=== PATIENT | female | born 1935 | race Caucasian/White ===

== ENCOUNTER 2019-04-03 19:08 | Inpatient (IN) ==
[2019-04-03] MEDS ORDERED: Albuterol 2.5 MG/3 ML NEBULIZER ONE (19:14)
[2019-04-03] MEDS ORDERED: Ipratropium/Albuterol Neb 3 ML ONE (19:14)
[2019-04-03] MEDS ORDERED: Ipratropium/Albuterol Neb 3 ML IH ONE ×2 (19:32→19:35)
[2019-04-03] MEDS ORDERED: Albuterol 2.5 MG/3 ML NEBULIZER IH ONE (19:37)
[2019-04-03 20:05] LABS: Basophils % 0.3 %; Eosinophils % 0.1 %; Hematocrit 31.7 % (35.3-44.9); Hemoglobin 9.9 g/dL (11.5-15.4); Immature Granulocytes % 0.5 % (0-4); Lymphocytes # 0.3 K/mcL (0.6-4.6); Lymphocytes % 2.2 %; Mean Corpuscular HGB Conc 31.2 g/dL (31.6-35.5); Mean Corpuscular Hemoglobin 29.4 pg (28.0-33.3); Mean Corpuscular Volume 94.1 fL (83.0-100.0); Mean Platelet Volume 9.8 fL (9.4-12.4); Monocytes # 0.6 K/mcL (0.0-1.3); Monocytes % 4.8 %; Neutrophils # 11.4 K/mcL (1.6-8.9); Platelet Count 204 K/mcL (140-400); Red Blood Count 3.37 M/mcL (3.82-4.97); Red Cell Distribution Width 16.4 % (11.5-14.5); Segmented Neutrophils % 92.1 %; White Blood Count 12.4 K/mcL (4.3-11.1)
[2019-04-03 20:15] LABS: VBG HCO3 34 mEq/L (21-27); VBG PCO2 60 mmHg (41-51); VBG PH 7.37 pH Units (7.32-7.42); VBG PO2 33 mmHg (25-50)
[2019-04-03 20:24] LABS: Alanine Aminotransferase 15 Units/L (7-52); Albumin 3.7 g/dL (3.5-5.7); Albumin/Globulin Ratio 1.4 (1.1-2.2); Alkaline Phosphatase 186 Units/L (34-104); Aspartate Amino Transferase 23 Units/L (13-39); BUN/Creatinine Ratio 13 (6-26); Bilirubin,Total 0.9 mg/dL (0.3-1.0); Blood Urea Nitrogen 10 mg/dL (8-23); Calcium 9.1 mg/dL (8.6-10.3); Carbon Dioxide 36 mEq/L (23-29); Chloride 97 mEq/L (98-107); Globulin 2.7 g/dL (2.4-3.5); Glucose 117 mg/dL (70-105); Osmolality,Calculated 284 (280-300); Sodium 137 mEq/L (136-145); Total Protein 6.4 g/dL (6.4-8.9); eGFR For African Americans > 60 (> 60); eGFR For Non-African Americans > 60 (> 60)
[2019-04-03] MEDS ORDERED: MOM Conc 10 ML UD.LIQ PO PRN (21:22)
[2019-04-03] MEDS ORDERED: Ondansetron ODT 4 MG TAB.RAPDIS SL PRN (21:22)
[2019-04-03] MEDS ORDERED: Acetaminophen 325 MG TABLET PO PRN (21:22)
[2019-04-03] MEDS ORDERED: Naloxone 0.4 MG/ML INJ IVP PRN (21:22)
[2019-04-03] MEDS ORDERED: MethylPREDNISolone 40 MG/ML VIAL IVP ONE (21:23)
[2019-04-03] MEDS ORDERED: Ondansetron 4 MG/2 ML VIAL IVP ONE (21:27)
[2019-04-03 21:34] LABS: INR 1.2; Prothrombin Time 13.4 Seconds (9.4-12.1)
[2019-04-03 21:37] LABS: Activated Partial Thrombo Time 36.3 Seconds (26.0-36.0)
[2019-04-03] MEDS ORDERED: cefTRIAXone 1,000 MG in 0.9 % Sodium Chloride Mini Bag 100 ML IVPB ONE (23:16)
[2019-04-03] MEDS: MethylPREDNISolone 40 MG/ML VIAL IVP SCH (23:24)
[2019-04-04] MEDS: Azithromycin 500 MG in 0.9 % Sodium Chloride 250 ML IVPB SCH ×2 (00:26→22:51)
[2019-04-04] MEDS: MethylPREDNISolone 40 MG/ML VIAL IVP SCH ×4 (04:35→22:51)
[2019-04-04] MEDS: Ipratropium/Albuterol Neb 3 ML IH PRN ×2 (04:35→09:34)
[2019-04-04] MEDS: *HR* Enoxaparin 40 MG/0.4 ML SYRINGE SQ SCH (06:11)
[2019-04-04] MEDS ORDERED: Cefdinir 300 MG CAPSULE PO SCH (09:00)
[2019-04-04] MEDS: PARoxetine 20 MG TABLET PO SCH (09:15)
[2019-04-04] MEDS: Ipratropium/Albuterol Neb 3 ML IH SCH ×3 (13:02→20:57)
[2019-04-04] MEDS ORDERED: Acetaminophen 325 MG TABLET PO ONE (21:27)
[2019-04-05] MEDS: Ipratropium/Albuterol Neb 3 ML IH SCH ×7 (04:15→23:37)
[2019-04-05] MEDS: MethylPREDNISolone 40 MG/ML VIAL IVP SCH ×3 (04:15→20:05)
[2019-04-05] MEDS: *HR* Enoxaparin 40 MG/0.4 ML SYRINGE SQ SCH (04:15)
[2019-04-05 06:47] LABS: Basophils % 0.1 %; Hemoglobin 8.6 g/dL (11.5-15.4); Immature Granulocytes % 0.6 % (0-4); Lymphocytes # 0.2 K/mcL (0.6-4.6); Lymphocytes % 2.6 %; Mean Corpuscular HGB Conc 31.9 g/dL (31.6-35.5); Mean Corpuscular Hemoglobin 29.6 pg (28.0-33.3); Mean Corpuscular Volume 92.8 fL (83.0-100.0); Mean Platelet Volume 10.1 fL (9.4-12.4); Monocytes # 0.3 K/mcL (0.0-1.3); Monocytes % 3.2 %; Platelet Count 192 K/mcL (140-400); Red Blood Count 2.91 M/mcL (3.82-4.97); Red Cell Distribution Width 16.2 % (11.5-14.5); Segmented Neutrophils % 93.5 %; White Blood Count 8.6 K/mcL (4.3-11.1)
[2019-04-05 07:04] LABS: BUN/Creatinine Ratio 24 (6-26); Blood Urea Nitrogen 20 mg/dL (8-23); Calcium 8.6 mg/dL (8.6-10.3); Carbon Dioxide 34 mEq/L (23-29); Chloride 97 mEq/L (98-107); Glucose 138 mg/dL (70-105); Osmolality,Calculated 281 (280-300); Potassium 4.3 mEq/L (3.5-5.1); Sodium 133 mEq/L (136-145); eGFR For African Americans > 60 (> 60); eGFR For Non-African Americans > 60 (> 60)
[2019-04-05] MEDS: PARoxetine 20 MG TABLET PO SCH (09:46)
[2019-04-05] MEDS: cefTRIAXone 1,000 MG in Water for inj. (sterile) 10 ML IVP SCH (12:34)
[2019-04-05] MEDS: Azithromycin 500 MG in 0.9 % Sodium Chloride 250 ML IVPB SCH (23:38)
[2019-04-06] MEDS ORDERED: *HR* Promethazine 25 MG/ML VIAL IVP ONE (00:48)
[2019-04-06] MEDS: Ipratropium/Albuterol Neb 3 ML IH SCH ×5 (03:33→21:45)
[2019-04-06 04:19] LABS: ABG Base Excess 7 mEq/L (-2 to 3); ABG HCO3 37 mEq/L (21-27); ABG Oxygen Saturation 97 % (95-98); ABG PCO2 87 mmHg (35-45); ABG PH 7.23 pH Units (7.32-7.45); ABG PO2 108 mmHg (85-104); ABG TCO2 39 mEq/L (20-26)
[2019-04-06] MEDS: MethylPREDNISolone 40 MG/ML VIAL IVP SCH ×4 (05:57→21:46)
[2019-04-06] MEDS: *HR* Enoxaparin 40 MG/0.4 ML SYRINGE SQ SCH (05:57)
[2019-04-06] MEDS: PARoxetine 20 MG TABLET PO SCH (09:38)
[2019-04-06] MEDS: cefTRIAXone 1,000 MG in Water for inj. (sterile) 10 ML IVP SCH (09:43)
[2019-04-06 10:26] LABS: VBG HCO3 34 mEq/L (21-27); VBG PCO2 64 mmHg (41-51); VBG PH 7.34 pH Units (7.32-7.42); VBG PO2 67 mmHg (25-50)
[2019-04-06] MEDS ORDERED: Furosemide 20 MG/2 ML VIAL IVP ONE ×3 (11:09→12:36)
[2019-04-06] MEDS ORDERED: Ondansetron 4 MG/2 ML VIAL IVP ONE (12:28)
[2019-04-06 12:47] LABS: ABG Base Excess 3 mEq/L (-2 to 3); ABG HCO3 34 mEq/L (21-27); ABG Oxygen Saturation 96 % (95-98); ABG PCO2 93 mmHg (35-45); ABG PH 7.17 pH Units (7.32-7.45); ABG PO2 111 mmHg (85-104); ABG TCO2 37 mEq/L (20-26)
[2019-04-06 15:25] LABS: ABG Base Excess 7 mEq/L (-2 to 3); ABG HCO3 35 mEq/L (21-27); ABG Oxygen Saturation 91 % (95-98); ABG PCO2 69 mmHg (35-45); ABG PH 7.32 pH Units (7.32-7.45); ABG PO2 70 mmHg (85-104); ABG TCO2 37 mEq/L (20-26)
[2019-04-06] MEDS: Azithromycin 500 MG in 0.9 % Sodium Chloride 250 ML IVPB SCH (21:46)
[2019-04-07] MEDS: Ipratropium/Albuterol Neb 3 ML IH SCH ×6 (00:17→20:34)
[2019-04-07] MEDS: *HR* Enoxaparin 40 MG/0.4 ML SYRINGE SQ SCH (06:05)
[2019-04-07] MEDS: cefTRIAXone 1,000 MG in Water for inj. (sterile) 10 ML IVP SCH (08:09)
[2019-04-07] MEDS: MethylPREDNISolone 40 MG/ML VIAL IVP SCH ×4 (08:09→21:15)
[2019-04-07] MEDS: PARoxetine 20 MG TABLET PO SCH (08:11)
[2019-04-07 10:43] LABS: Alanine Aminotransferase 25 Units/L (7-52); Albumin 3.4 g/dL (3.5-5.7); Albumin/Globulin Ratio 1.3 (1.1-2.2); Alkaline Phosphatase 123 Units/L (34-104); Aspartate Amino Transferase 26 Units/L (13-39); BUN/Creatinine Ratio 34 (6-26); Bilirubin,Total 0.3 mg/dL (0.3-1.0); Blood Urea Nitrogen 32 mg/dL (8-23); Calcium 8.6 mg/dL (8.6-10.3); Carbon Dioxide 36 mEq/L (23-29); Chloride 95 mEq/L (98-107); Globulin 2.7 g/dL (2.4-3.5); Glucose 141 mg/dL (70-105); Osmolality,Calculated 295 (280-300); Potassium 3.9 mEq/L (3.5-5.1); Sodium 138 mEq/L (136-145); Total Protein 6.1 g/dL (6.4-8.9); eGFR For African Americans > 60 (> 60); eGFR For Non-African Americans 56 (> 60)
[2019-04-07 10:51] LABS: ABG Base Excess 8 mEq/L (-2 to 3); ABG HCO3 37 mEq/L (21-27); ABG Oxygen Saturation 98 % (95-98); ABG PCO2 75 mmHg (35-45); ABG PO2 112 mmHg (85-104); ABG TCO2 39 mEq/L (20-26)
[2019-04-07] MEDS ORDERED: Famotidine 20 MG/2 ML VIAL IVP ONE (15:38)
[2019-04-08] MEDS: Ipratropium/Albuterol Neb 3 ML IH SCH ×4 (00:22→11:36)
[2019-04-08] MEDS: *HR* Enoxaparin 40 MG/0.4 ML SYRINGE SQ SCH (06:02)
[2019-04-08] MEDS: PARoxetine 20 MG TABLET PO SCH (08:23)
[2019-04-08] MEDS: cefTRIAXone 1,000 MG in Water for inj. (sterile) 10 ML IVP SCH (08:24)
[2019-04-08] MEDS: MethylPREDNISolone 40 MG/ML VIAL IVP SCH ×2 (08:24→12:40)
[2019-04-08 11:36] VITALS: BP 170/92
== END 2019-04-08 13:15 | disposition hospice, home (50) | DRG 190 ==
LOC: EMEROOGRE 19:08 → INPGRE 19:08
PROVIDERS: ADMIT Family Medicine; ATTEND Family Medicine